=== PATIENT | male | born 1940 | race Caucasian/White ===

== ENCOUNTER 2016-09-04 10:27 | Inpatient (IN) | payer OTHER, MEDICARE ==
[~2016-09-04] VITALS: Ht 177.8 cm; Wt 75.6 kg
[~2016-09-04 10:27] MED LIST: ASCORBIC ACID500 M3 PO; ASPIR-TRIN325 MG PO; ASPIRIN E.C.81 M1 PO; BACTRIM,SEPT1 TABLET PO; BENADRYL25 MG PO; CAL MAG ZINC +1 EACH PO; CALCIUM 500 MG1 EACH PO; CALCIUM-MAG-ZI1 EACH PO; CARBIDOPA-LEVO1 EAC3 PO; CARBIDOPA-LEVO1 EAC8 PO; CIPRO500 MG PO; DYNAPEN 250 MG250 MG PO; ENDOCET 5-3251 EACH PO; FLAX OIL1000 MG PO; FOLIC ACID0.4 MG PO; FOLIC ACID1 MG PO; GLUCOPHAGE1000 M1 PO; GLUCOPHAGE500 MG PO; HYDROCHLOROTHIA25 MG PO; HYDROCODON-ACE1 EAC7 PO; HYDRODIURIL,ORE25 MG PO; IRON325 M1 PO; JANUMET XR 1001 EACH PO; JANUVIA100 MG PO; L-LYSINE1000 M1 PO; L-LYSINE500 M2 PO; LANTUS 3 M100 UNITS/ SC; LANTUS100 UNIT/2 SQ; LEVEMIR FL100 UNIT/1 SC; LISINOPRIL5 MG PO; LOPRESSOR25 MG PO; LOPRESSOR50 MG PO; LORAZEPAM0.5 MG PO; LORAZEPAM2 MG PO; Levaquin PO; MEN'S ONE DAIL1 EACH PO; METFORMIN HCL1000 MG PO; METOPROLOL SUCC50 MG PO; MIRAPEX0.125 MG PO; MIRAPEX1 MG PO; MULTI-VITAMIN1 EAC4 PO; NIFEDICAL XL30 MG PO; NIFEDIPINE ER30 MG PO; NORCO 5/3251 TABLET PO; NOVOLOG 10100 UNITS/ SC; NOVOLOG PE100 UNITS/ SC; OMEPRAZOLE20 MG PO; PLAVIX75 MG PO; POTASSIUM 595MG PO; POTASSIUM GLUCO2 MEQ PO; PRILOSEC OTC20 MG PO; PRINIVIL20 MG PO; ROPINIROLE HCL2 MG PO; SANTYL30 GM TP; SELENIUM200 MC3 PO; SELENIUM200 MCG PO; SEROQUEL12.5 MG PO; SEROQUEL50 MG PO; SIMVASTATIN20 MG PO; SINEMET CR 25-1 EACH PO; Sinemet 25-100 PO; TOPROL XL100 MG PO; TOPROL XL50 MG PO; TRADJENTA5 MG PO; TRAVATAN Z5 ML BOTH EYES; TRIAMCINOLONE A15 GM TP; Tessalon Perle PO; VALIUM5 MG PO; VITAMIN D31000 UNIT PO; WELCHOL625 MG PO; XARELTO15 MG PO; XARELTO20 MG PO; ZESTRIL,PRINIVI40 MG PO; ZESTRIL40 MG PO; ZOCOR20 MG PO
[2016-09-04 11:23] LABS: HEMATOCRIT 33.8 % (38.0-50.0); MCH 32.3 PG (29.0-34.0); MCHC 33.4 G/DL (30.0-36.0); MCV 96.6 FL (86-99); MEAN PLAT.VOLUME 10.2 uM^3 (9.0-12.4); PLATELET COUNT 67 K/uL (156-360); RBC DIS.WIDTH-CV 11.7 % (11.8-14.6); RBC DIS.WIDTH-SD 41.1 % (39-53); WHITE BLOOD COUNT 6.9 K/uL (4.1-10.2)
[2016-09-04 11:58] LABS: ANION GAP 6 MEQ/L (2-14); CHLORIDE 101 MEQ/L (99-109); SAMPLE HEMOLYSIS CHECK 1; SAMPLE ICTERIC CHECK 0; SAMPLE LIPEMIA CHECK 0; SODIUM 138 MEQ/L (136-147)
[2016-09-04 12:09] LABS: GFR ESTIMATE (CALCULATED) > 59 mL/min/; GLUCOSE 219 mg/dL (70-99); UREA NITROGEN (BUN) 25 mg/dL (9-23)
[2016-09-04 12:26] VITALS: BP 185/84
[2016-09-04 13:02] VITALS: BP 185/84
[2016-09-04 16:06] LABS: POINT-OF-CARE METER ID UU13113675
[2016-09-04 17:47] VITALS: BP 142/63
[2016-09-04 19:35] VITALS: BP 161/70
[2016-09-04 23:46] VITALS: BP 146/66
[2016-09-05] VITALS (11 sets, daily range): BP systolic 93–169; BP diastolic 52–74
[2016-09-05 05:59] LABS: ANION GAP 8 MEQ/L (2-14); CHLORIDE 100 MEQ/L (99-109); GFR ESTIMATE (CALCULATED) > 59 mL/min/; MAGNESIUM 1.8 mg/dl (1.3-2.7); POTASSIUM 5.1 MEQ/L (3.7-5.4); SAMPLE HEMOLYSIS CHECK 0; SAMPLE ICTERIC CHECK 0; SAMPLE LIPEMIA CHECK 0; SODIUM 136 MEQ/L (136-147); UREA NITROGEN (BUN) 25 mg/dL (9-23)
[2016-09-05 06:00] LABS: GLUCOSE 392 mg/dL (70-99)
[2016-09-05 06:14] LABS: HEMATOCRIT 25.2 % (38.0-50.0); MCH 31.5 PG (29.0-34.0); MCHC 32.5 G/DL (30.0-36.0); MCV 96.9 FL (86-99); MEAN PLAT.VOLUME 9.5 uM^3 (9.0-12.4); RBC DIS.WIDTH-CV 11.8 % (11.8-14.6); RBC DIS.WIDTH-SD 41.5 % (39-53)
[2016-09-05 06:21] LABS: PLATELET COUNT 259 K/uL (156-360)
[2016-09-05 07:09] LABS: POINT-OF-CARE METER ID UU14149397
[2016-09-05 09:27] LABS: POINT-OF-CARE METER ID UU14149397
[2016-09-05 11:20] LABS: BASE EXCESS 8.2 mEq/L (-3 to +3); BICARBONATE 33.3 mEq/L (22-26); CARBOXY HGB 2.4 % (0-5); METHEMOGLOBIN 1.7 % (0-1.5); PCO2 49 mm Hg (35-45); PO2 67 mm Hg (80-100); pH 7.44 (7.35-7.45)
[2016-09-05 11:21] LABS: COMMENTS - BLOOD GASES +C; FI02 21 %; SITE LR +A; TOTAL RESP RATE 16 resp/min
[2016-09-05 12:01] LABS: POINT-OF-CARE METER ID UU14149397
[2016-09-05 12:35] LABS: TROP-I INTERPRETATION NEGATIVE; TROPONIN-I 0.02 ng/mL (0.0-0.30)
[2016-09-05 14:47] LABS: EOSINOPHIL (%) 0.5 % (0-5); EOSINOPHIL COUNT 0.1 K/uL (0-0.3); IMMATURE GRANULOCYTE (%) 0.7 % (0.0-0.7); IMMATURE GRANULOCYTE COUNT 0.1 K/uL; INSTRUMENT ABS NEUTROPHIL CT 11.3 K/uL; LYMPHOCYTE COUNT 1.2 K/uL (1.0-2.8); MCH 31.9 PG (29.0-34.0); MCHC 32.8 G/DL (30.0-36.0); MCV 97.3 FL (86-99); MEAN PLAT.VOLUME 9.3 uM^3 (9.0-12.4); MONOCYTE (%) 7.7 % (3-12); MONOCYTE COUNT 1.1 K/uL (0-0.8); NEUTROPHIL (%) 81.9 % (45-76); NEUTROPHIL COUNT 11.3 K/uL (1.8-6.4); PLATELET COUNT 226 K/uL (156-360); RBC DIS.WIDTH-SD 42.3 % (39-53); RED BLOOD COUNT 2.57 M/uL (4.00-5.50); WHITE BLOOD COUNT 13.8 K/uL (4.1-10.2)
[2016-09-05 15:03] LABS: ALKALINE PHOSPHATASE 60 IU/L (3-129); ANION GAP 5 MEQ/L (2-14); CHLORIDE 101 MEQ/L (99-109); GFR ESTIMATE (CALCULATED) > 59 mL/min/; GLUCOSE 211 mg/dL (70-99); POTASSIUM 4.5 MEQ/L (3.7-5.4); SAMPLE HEMOLYSIS CHECK 0; SAMPLE ICTERIC CHECK 0; SAMPLE LIPEMIA CHECK 0; SODIUM 136 MEQ/L (136-147); TOTAL BILIRUBIN 0.3 MG/DL (0.0-1.0); UREA NITROGEN (BUN) 26 mg/dL (9-23)
[2016-09-05 17:07] LABS: POINT-OF-CARE METER ID UU14149397
[2016-09-06 04:05] VITALS: BP 161/68
[2016-09-06 04:58] LABS: EOSINOPHIL (%) 0.7 % (0-5); EOSINOPHIL COUNT 0.1 K/uL (0-0.3); IMMATURE GRANULOCYTE (%) 0.9 % (0.0-0.7); IMMATURE GRANULOCYTE COUNT 0.1 K/uL; INSTRUMENT ABS NEUTROPHIL CT 11.4 K/uL; LYMPHOCYTE COUNT 1.1 K/uL (1.0-2.8); MCH 31.5 PG (29.0-34.0); MCHC 33.4 G/DL (30.0-36.0); MCV 94.2 FL (86-99); MEAN PLAT.VOLUME 9.2 uM^3 (9.0-12.4); MONOCYTE (%) 7.4 % (3-12); NEUTROPHIL (%) 82.9 % (45-76); NEUTROPHIL COUNT 11.4 K/uL (1.8-6.4); PLATELET COUNT 254 K/uL (156-360); RBC DIS.WIDTH-CV 13.1 % (11.8-14.6); RBC DIS.WIDTH-SD 45.1 % (39-53); RED BLOOD COUNT 3.08 M/uL (4.00-5.50); WHITE BLOOD COUNT 13.7 K/uL (4.1-10.2)
[2016-09-06 09:27] VITALS: BP 144/69
[2016-09-06 09:42] LABS: ANION GAP 6 MEQ/L (2-14); CHLORIDE 99 MEQ/L (99-109); GFR ESTIMATE (CALCULATED) > 59 mL/min/; GLUCOSE 190 mg/dL (70-99); POTASSIUM 4.2 MEQ/L (3.7-5.4); SAMPLE HEMOLYSIS CHECK 0; SAMPLE ICTERIC CHECK 0; SAMPLE LIPEMIA CHECK 0; SODIUM 134 MEQ/L (136-147); UREA NITROGEN (BUN) 13 mg/dL (9-23)
[2016-09-06 11:47] LABS: POINT-OF-CARE METER ID UU14149397
[2016-09-06 12:31] VITALS: BP 157/70
[2016-09-06 16:23] VITALS: BP 180/77
[2016-09-06 16:41] LABS: POINT-OF-CARE METER ID UU14149397
[2016-09-06 20:38] VITALS: BP 166/74
[2016-09-07] VITALS (10 sets, daily range): BP systolic 123–174; BP diastolic 53–86
[2016-09-07 05:24] LABS: EOSINOPHIL (%) 0.6 % (0-5); EOSINOPHIL COUNT 0.1 K/uL (0-0.3); HEMATOCRIT 26.2 % (38.0-50.0); IMMATURE GRANULOCYTE (%) 0.6 % (0.0-0.7); IMMATURE GRANULOCYTE COUNT 0.1 K/uL; INSTRUMENT ABS NEUTROPHIL CT 10.5 K/uL; MCH 31.1 PG (29.0-34.0); MCHC 33.2 G/DL (30.0-36.0); MCV 93.6 FL (86-99); MONOCYTE (%) 6.3 % (3-12); MONOCYTE COUNT 0.8 K/uL (0-0.8); NEUTROPHIL (%) 84.4 % (45-76); NEUTROPHIL COUNT 10.5 K/uL (1.8-6.4); PLATELET COUNT 235 K/uL (156-360); RBC DIS.WIDTH-CV 12.8 % (11.8-14.6); RBC DIS.WIDTH-SD 43.8 % (39-53); WHITE BLOOD COUNT 12.5 K/uL (4.1-10.2)
[2016-09-07 05:51] LABS: ANION GAP 8 MEQ/L (2-14); CHLORIDE 102 MEQ/L (99-109); GFR ESTIMATE (CALCULATED) > 59 mL/min/; GLUCOSE 195 mg/dL (70-99); POTASSIUM 3.9 MEQ/L (3.7-5.4); SAMPLE HEMOLYSIS CHECK 0; SAMPLE ICTERIC CHECK 0; SAMPLE LIPEMIA CHECK 0; SODIUM 136 MEQ/L (136-147); UREA NITROGEN (BUN) 15 mg/dL (9-23)
[2016-09-07 12:11] LABS: POINT-OF-CARE METER ID UU14188577
[2016-09-07 16:53] LABS: POINT-OF-CARE METER ID UU14149397
[2016-09-07 21:39] LABS: POINT-OF-CARE METER ID UU14149397
[2016-09-08 05:00] VITALS: BP 138/74
[2016-09-08 06:00] LABS: EOSINOPHIL (%) 2.6 % (0-5); EOSINOPHIL COUNT 0.2 K/uL (0-0.3); HEMATOCRIT 30.4 % (38.0-50.0); IMMATURE GRANULOCYTE (%) 0.6 % (0.0-0.7); IMMATURE GRANULOCYTE COUNT 0.1 K/uL; INSTRUMENT ABS NEUTROPHIL CT 6.2 K/uL; LYMPHOCYTE COUNT 1.3 K/uL (1.0-2.8); MCH 30.7 PG (29.0-34.0); MCHC 32.6 G/DL (30.0-36.0); MCV 94.4 FL (86-99); MEAN PLAT.VOLUME 9.5 uM^3 (9.0-12.4); MONOCYTE COUNT 0.8 K/uL (0-0.8); NEUTROPHIL (%) 72.2 % (45-76); NEUTROPHIL COUNT 6.2 K/uL (1.8-6.4); PLATELET COUNT 249 K/uL (156-360); RBC DIS.WIDTH-CV 13.1 % (11.8-14.6); RBC DIS.WIDTH-SD 45.2 % (39-53); RED BLOOD COUNT 3.22 M/uL (4.00-5.50); WHITE BLOOD COUNT 8.6 K/uL (4.1-10.2)
[2016-09-08 06:17] LABS: ANION GAP 9 MEQ/L (2-14); CHLORIDE 105 MEQ/L (99-109); GFR ESTIMATE (CALCULATED) > 59 mL/min/; GLUCOSE 122 mg/dL (70-99); POTASSIUM 3.6 MEQ/L (3.7-5.4); SAMPLE HEMOLYSIS CHECK 0; SAMPLE ICTERIC CHECK 0; SAMPLE LIPEMIA CHECK 0; SODIUM 142 MEQ/L (136-147); UREA NITROGEN (BUN) 18 mg/dL (9-23)
[2016-09-08 06:52] LABS: C DIFF TOXIN NEGATIVE (NEGATIVE)
[2016-09-08 06:53] LABS: PROBE CHECK PASS; SPECIMEN PROCESSING CONTROL PASS
[2016-09-08 07:53] VITALS: BP 136/71
[2016-09-08 10:59] LABS: TROP-I INTERPRETATION NEGATIVE; TROPONIN-I 0.01 ng/mL (0.0-0.30)
[2016-09-08 11:47] VITALS: BP 150/67
[2016-09-08 16:12] VITALS: BP 133/66
[2016-09-08 16:20] LABS: TROP-I INTERPRETATION NEGATIVE; TROPONIN-I 0.01 ng/mL (0.0-0.30)
[2016-09-08 16:50] LABS: POINT-OF-CARE METER ID UU14149397
[2016-09-08 20:14] VITALS: BP 138/78
[2016-09-08 21:14] LABS: POINT-OF-CARE METER ID UU14188577
[2016-09-08 22:21] LABS: TROP-I INTERPRETATION NEGATIVE; TROPONIN-I 0.01 ng/mL (0.0-0.30)
[2016-09-08 23:58] VITALS: BP 131/60
[2016-09-09 04:00] VITALS: BP 115/57
[2016-09-09 08:20] VITALS: BP 124/60
[2016-09-09 11:24] VITALS: BP 127/60
[2016-09-09 11:56] LABS: POINT-OF-CARE METER ID UU14188577
[2016-09-09] MEDS ORDERED: ELIQUIS5 MG PO (13:21)
[2016-09-09] MEDS ORDERED: NORCO 5/3251 TABLET PO (13:21)
[2016-09-09] MEDS ORDERED: DILTIAZEM 24HR120 MG PO (13:21)
[2016-09-09] MEDS ORDERED: LISINOPRIL5 MG PO (13:21)
[2016-09-09] MEDS ORDERED: UNASYN3 GM IV (13:25)
== END 2016-09-09 15:43 | DRG 240 ==
LOC: 2SOUTH 10:27 → 3EAST 10:48 → 2SOUTH 11:20 → 3EAST 17:01
PROVIDERS: Internal Medicine; Internal Medicine Cardiovascular Disease; Student in an Organized Health Care Education/Training Program; Surgery
PROC: 0Y670ZZ Detachment at Right Femoral Region, Open Approach (ICD-10-PCS; 2016-09-04)
PROC: 30233N1 Transfusion of Nonautologous Red Blood Cells into Peripheral Vein, Percutaneous Approach (ICD-10-PCS; principal; 2016-09-05)
DX: E11.52 Type 2 diabetes mellitus with diabetic peripheral angiopathy with gangrene (principal); G20 Parkinson's disease; E11.42 Type 2 diabetes mellitus with diabetic polyneuropathy; D72.829 Elevated white blood cell count, unspecified; E11.621 Type 2 diabetes mellitus with foot ulcer; L97.419 Non-pressure chronic ulcer of right heel and midfoot with unspecified severity; E11.65 Type 2 diabetes mellitus with hyperglycemia; T40.2X5A Adverse effect of other opioids, initial encounter; Y92.239 Unspecified place in hospital as the place of occurrence of the external cause; R53.83 Other fatigue; I48.0 Paroxysmal atrial fibrillation; Z79.01 Long term (current) use of anticoagulants; I27.2 Other secondary pulmonary hypertension; I08.1 Rheumatic disorders of both mitral and tricuspid valves; I25.10 Atherosclerotic heart disease of native coronary artery without angina pectoris; Z86.73 Personal history of transient ischemic attack (TIA), and cerebral infarction without residual deficits; E78.5 Hyperlipidemia, unspecified; I12.9 Hypertensive chronic kidney disease with stage 1 through stage 4 chronic kidney disease, or unspecified chronic kidney disease; E11.22 Type 2 diabetes mellitus with diabetic chronic kidney disease; N18.3 Chronic kidney disease, stage 3 (moderate); D64.9 Anemia, unspecified; I95.2 Hypotension due to drugs
CPT/HCPCS: 36600; 71010; 80048; 80053; 82803; 82948; 83605; 83735; 84100; 84484; 85025; 85027; 86900; 86901; 86920; 87040; 87493; 88307; 88311; 92526 GN; 92610 GN; 93005; 93306; 93926; J0131; J0295; J0690; J1170; J1815; J2405; J3010; J7030; J7040; J7050; P9016